=== PATIENT | female | born 1950 | race Caucasian/White ===

== ENCOUNTER 2016-05-14 10:18 | Emergency (ER) | payer OTHER ==
[~2016-05-14] VITALS: Ht 167.6 cm; Wt 72.6 kg
[~2016-05-14 10:18] MED LIST: ASCO100T4 PO; CALC-77 PO; FAMO20TA5 PO; FLUO10CA13 PO; LOSA50TA6 PO; MULT-658 PO; NAPR500T3 PO
[2016-05-14 10:31] VITALS: BP 137/70
--- NOTE | 2016-05-14 11:10 | PHYS DOC ---
Past Medical History Past Medical History: Hypertension Past Surgical History: Tubal ligation, Other Additional Past Surgical Histo: acl repair Alcohol Use: Rarely Drug Use: None Adult General Chief Complaint Chief Complaint: ABSCESS HPI HPI Patient is a 66 year old female presents emergency Department stating she's had a 2 day history of an abscess on her left buttocks area. She states that she 's been placing warm moist packs of the site. She states last night she started developing a fever and started taking Keflex at home. She states that she does have enough for 2 weeks at home. Patient's tetanus immunization is up-to-date. Patient states that she has noticed thick purulent drainage coming from the site. Review of Systems Review of Systems Constitutional: Denies fever or chills [] Eyes: Denies change in visual acuity, redness, or eye pain [] HENT: Denies nasal congestion or sore throat [] Respiratory: Denies cough or shortness of breath [] Cardiovascular: No additional information not addressed in HPI [] GI: Denies abdominal pain, nausea, vomiting, bloody stools or diarrhea [] : Denies dysuria or hematuria [] Musculoskeletal: Denies back pain or joint pain [] Integument: Denies rash or skin lesions. Abscess to left buttock area Neurologic: Denies headache, focal weakness or sensory changes [] Allergies Allergies Allergies Coded Allergies Type Severity Reaction Last Updated Verified No Known Drug Allergies 05/14/16 No Physical Exam Physical Exam Constitutional: Well developed, well nourished, no acute distress, non-toxic appearance. [] HENT: Normocephalic, atraumatic, bilateral external ears normal, oropharynx moist, no oral exudates, nose normal. [] Eyes: PERRLA, EOMI, conjunctiva normal, no discharge. [] Neck: Normal range of motion, no tenderness, supple, no stridor. [] Cardiovascular:Heart rate regular rhythm, no murmur [] Lungs & Thorax: Bilateral breath sounds clear to auscultation [] Skin: Warm, dry, no erythema, no rash. Left buttock appears to be red and tender. Warm to touch with purulent drainage coming from the site. Did express more purulent drainage from the site. Back: No tenderness Extremities: No tenderness, no cyanosis, no clubbing, ROM intact, no edema. [] Neurologic: Alert and oriented X 3, normal motor function, normal sensory function, no focal deficits noted. [] Psychologic: Affect normal, judgement normal, mood normal. [] Current Patient Data Vital Signs Vital Signs Date Time Temp Pulse Resp B/P Pulse Ox O2 Delivery O2 Flow Rate FiO2 05/14/16 10:31 97.9 74 17 99 Room Air 97.9 Lab Values Laboratory Tests Test 05/14/16 11:35 White Blood Count 7.2x10^3/uL (4.0-11.0) Red Blood Count 4.09x10^6/uL (3.50-5.40) Hemoglobin 11.9g/dL (12.0-15.5) L Hematocrit 35.7% (36.0-47.0) L Mean Corpuscular Volume 87fL (79-100) Mean Corpuscular Hemoglobin 29pg (25-35) Mean Corpuscular Hemoglobin Concent 33g/dL (31-37) Red Cell Distribution Width 14.5% (11.5-14.5) Platelet Count 239x10^3/uL (140-400) Neutrophils (%) (Auto) 61% (31-73) Lymphocytes (%) (Auto) 21% (24-48) L Monocytes (%) (Auto) 17% (0-9) H Eosinophils (%) (Auto) 1% (0-3) Basophils (%) (Auto) 1% (0-3) Neutrophils # (Auto) 4.4x10^3uL (1.8-7.7) Lymphocytes # (Auto) 1.5x10^3/uL (1.0-4.8) Monocytes # (Auto) 1.2x10^3/uL (0.0-1.1) H Eosinophils # (Auto) 0.1x10^3/uL (0.0-0.7) Basophils # (Auto) 0.1x10^3/uL (0.0-0.2) Laboratory Tests 05/14/16 11:35 EKG EKG [] Radiology/Procedures Radiology/Procedures [] Course & Med Decision Making Course & Med Decision Making Pertinent Labs and Imaging studies reviewed. (See chart for details) Patient had started on Keflex last night. We'll have her continue the Keflex. We will recommend warm moist packs to the buttocks area 3-4 times a day. This will help promote drainage. Recommended follow-up with her primary care physician in the next 2-3 days. Tylenol and ibuprofen for fever chills or generalized body aches and discomfort. Patient will be discharged home in stable condition signs and symptoms to return back to emergency department as been provided. Dragon Disclaimer Dragon Disclaimer This electronic medical record was generated, in whole or in part, using a voice recognition dictation system. Departure Departure Impression: Primary Impression: Abscess Disposition: 01 HOME, SELF-CARE Condition: STABLE Referrals: NON,STAFF (PCP) Patient Instructions: Abscess, [id number] Additional Instructions: Tylenol or ibuprofen for fever chills or generalized body aches and discomfort. Continue taking the Keflex as you've been prescribed. Warm moist packs to the area 3-4 times a day. Keep the area covered to prevent drainage and contamination. Follow-up through primary care physician in the next 2-3 days. Return back to emergency prior signs symptoms become worse. ERNIE RAINEY NP May 14, 2016 11:10
[2016-05-14 11:45] LABS: BASO # 0.1 x10^3/uL (0.0-0.2); BASO % 1 % (0-3); EOS % 1 % (0-3); HEMATOCRIT 35.7 % (36.0-47.0); HEMOGLOBIN 11.9 g/dL (12.0-15.5); LYMPH # 1.5 x10^3/uL (1.0-4.8); LYMPH % 21 % (24-48); MEAN CORPUSCULAR HEMOGLOBIN 29 pg (25-35); MEAN CORPUSCULAR HGB CONC 33 g/dL (31-37); MEAN CORPUSCULAR VOLUME 87 fL (79-100); MONO % 17 % (0-9); NEUT % 61 % (31-73); PLATELET COUNT 239 x10^3/uL (140-400); RED BLOOD COUNT 4.09 x10^6/uL (3.50-5.40); RED CELL DISTRIBUTION WIDTH 14.5 % (11.5-14.5); WHITE BLOOD COUNT 7.2 x10^3/uL (4.0-11.0)
== END 2016-05-14 12:09 | disposition home or self-care (01) ==
LOC: ER 10:18
DX: L02.31 Cutaneous abscess of buttock (principal); I10 Essential (primary) hypertension
CPT/HCPCS: 36415; 85027; 99283

== ENCOUNTER 2016-05-17 11:42 | Day surgery (SDC) | payer OTHER ==
[~2016-05-17 11:42] MED LIST changes: -CEFAZOLIN 2GM PREMIX 50 ML IV ONE; -DOCU100C PO; -OXYC-323 PO; -SILV20CR4 TP
[2016-05-17] MEDS ORDERED: LIDOCAINE 1% 1 ML SYRINGE. ID PRN ×2 (11:45)
[2016-05-17] MEDS ORDERED: HYDROMORPHONE 2 MG/ML VIAL. IV PRN ×2 (11:45)
[2016-05-17] MEDS ORDERED: PROCHLORPERAZINE 10 MG/2 ML VIAL. IV PRN ×2 (11:45)
[2016-05-17] MEDS ORDERED: MORPHINE SULFATE 2 MG/ML DISP.SYRIN. IV PRN ×2 (11:45)
[2016-05-17] MEDS ORDERED: FENTANYL PF 100 MCG/2 ML VIAL. IV PRN ×4 (11:45)
[2016-05-17] MEDS ORDERED: IV RINGERS,LACTATED 1000ML 1,000 ML IV SCH ×2 (11:45)
[2016-05-17] MEDS ORDERED: ONDANSETRON PF 4 MG/2 ML VIAL. IV PRN ×2 (11:45)
--- NOTE | 2016-05-17 11:53 | PDOC1 ---
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 She was seen in the ED where they expressed some material from the area and sent her home. She has continued to have pain and some drainage and is brought for surgical I&D Past Medical History Cardiovascular: HTN Pulmonary: No pertinent hx GI: No pertinent hx Dermatology: Other (previous abscess) Past Surgical History Past Surgical History: Tubal Ligation, Other (ACL repair) Family History Family History: No Significant Social History Smoke: No ALCOHOL: rare Drugs: None Current Medications Current Medications Current Medications Ondansetron HCl (Zofran) 4 mg PRN Q6HRS PRN IV Nausea; Start 05/17/16 at 11:45 ; Stop 05/18/16 at 11:44; Status UNV Fentanyl Citrate (Fentanyl 2ml Vial) 25 mcg PRN Q5MIN PRN IV MILD PAIN; Start 05/17/16 at 11:45; Stop 05/18/16 at 11:44; Status UNV Fentanyl Citrate (Fentanyl 2ml Vial) 50 mcg PRN Q5MIN PRN IV MODERATE PAIN; Start 05/17/16 at 11:45; Stop 05/18/16 at 11:44; Status UNV Morphine Sulfate 1 mg 1 mg PRN Q10MIN PRN IV SEVERE PAIN; Start 05/17/16 at 11: 45; Stop 05/18/16 at 11:44; Status UNV Lactated Ringer's (Iv Lactated Ringers) 1,000 ml @ 0 mls/hr Q0M IV ; Start at 11:45; Stop 05/17/16 at 23:44; Status UNV Lidocaine HCl 2 ml 1X PRN PRN ID IV START; Start 05/17/16 at 11:45; Stop at 11:44; Status UNV Hydromorphone HCl (Dilaudid) 0.5 mg PRN Q10MIN PRN IV SEV PAIN,Second choice; Start 05/17/16 at 11:45; Stop 05/18/16 at 11:44; Status UNV Prochlorperazine Edisylate (Compazine) 5 mg PACU PRN PRN IV NAUSEA; Start 05/17 at 11:45; Stop 05/18/16 at 11:44; Status UNV Ondansetron HCl (Zofran) 4 mg PRN Q6HRS PRN IV Nausea; Start 05/17/16 at 11:45 ; Stop 05/18/16 at 11:44; Status UNV Fentanyl Citrate (Fentanyl 2ml Vial) 25 mcg PRN Q5MIN PRN IV MILD PAIN; Start 05/17/16 at 11:45; Stop 05/18/16 at 11:44; Status UNV Fentanyl Citrate (Fentanyl 2ml Vial) 50 mcg PRN Q5MIN PRN IV MODERATE PAIN; Start 05/17/16 at 11:45; Stop 05/18/16 at 11:44; Status UNV Morphine Sulfate 1 mg 1 mg PRN Q10MIN PRN IV SEVERE PAIN; Start 05/17/16 at 11: 45; Stop 05/18/16 at 11:44; Status UNV Lactated Ringer's (Iv Lactated Ringers) 1,000 ml @ 0 mls/hr Q0M IV ; Start at 11:45; Stop 05/17/16 at 23:44; Status UNV Lidocaine HCl 2 ml 1X PRN PRN ID IV START; Start 05/17/16 at 11:45; Stop at 11:44; Status UNV Hydromorphone HCl (Dilaudid) 0.5 mg PRN Q10MIN PRN IV SEV PAIN,Second choice; Start 05/17/16 at 11:45; Stop 05/18/16 at 11:44; Status UNV Prochlorperazine Edisylate (Compazine) 5 mg PACU PRN PRN IV NAUSEA; Start 05/17 at 11:45; Stop 05/18/16 at 11:44; Status UNV Active Scripts Active Reported Vitamin C (Ascorbic Acid) 100 Mg Tablet 100 Mg PO Calcium + D3 Er Tablet (Calcium Carb & Cit/Vitamin D3) 1 Each Tablet.er 1 Each PO DAILY Centrum Silver Tablet (Multivits-Min/Fa/Lycopene/Lut) 1 Each Tablet 1 Each PO DAILY Famotidine 20 Mg Tablet 10 Mg PO HS PRN Naproxen 500 Mg Tablet 1 Tab PO BID PRN Losartan Potassium 50 Mg Tablet 50 Mg PO DAILY Prozac (Fluoxetine Hcl) 10 Mg Capsule 1 Cap PO DAILY Allergies Allergies: Coded Allergies: No Known Drug Allergies (Unverified , 05/14/16) ROS General: YES: Chills, Other (low grade fevers) Physical Exam General: Alert, Oriented X3, Cooperative, No acute distress HEENT: Atraumatic Lungs: Normal air movement Heart: RRR Abdomen: Soft Rectal Exam: other (on the left buttocks, near the perirectal area is an area of redness, warmth and TTP) Skin: No rashes Neuro: Normal gait, Normal speech Images Images soft tissue US suggests fluid collection in the subcutaneous tissue VTE Prophylaxis Ordered VTE Prophylaxis Devices: Yes VTE Pharmacological Prophylaxi: No Assessment/Plan Assessment/Plan perirectal abscess/I and D Explained procedure to Breanna including the fact she would have an open wound requiring daily dressing changes. She will proceed JADEN MONTERO MD May 17, 2016 11:53
[2016-05-17] MEDS ORDERED: MIDAZOLAM HCL 2 MG/2 ML VIAL. ONE (11:55)
[2016-05-17] MEDS ORDERED: FENTANYL PF 100 MCG/2 ML VIAL. ONE (11:56)
[2016-05-17] MEDS ORDERED: PROPOFOL 20 ML IV ONE (11:57)
[2016-05-17] MEDS ORDERED: LIDOCAINE 2% 100 MG/5 ML DISP.SYRIN. ONE (11:58)
[2016-05-17] MEDS ORDERED: CEFAZOLIN 2GM PREMIX 50 ML IV ONE (11:59)
[2016-05-17] MEDS ORDERED: ONDANSETRON PF 4 MG/2 ML VIAL. ONE (12:27)
[2016-05-17] MEDS ORDERED: SEVOFLURANE 16 TO 30 MINUTES. IH ONE (12:27)
[2016-05-17] MEDS ORDERED: DEXAMETHASONE SOD PHOS 20 MG/5 ML VIAL. ONE (12:27)
[2016-05-17] MEDS ORDERED: NEOMY/BACITR/POLYMYXIN OINT PACKET. TP ONE ×2 (12:31→12:33)
--- NOTE | 2016-05-17 12:51 | DISCH ---
DISCHARGE INSTRUCTIONS Condition on Discharge Condition on Discharge: Stable Activity After Discharge Activity Instructions for Disc: Activity as tolerated, Avoid exertion Lifting Instructions after Dis: No heavy lifting Driving Instructions after Dis: Do not drive today Diet after Discharge Diet after Discharge: Regular Wound Incision Care Wound/Incision Care: Ice to area for comfort Other wound/incision instructi: august showmonday Follow-Up Follow Up With: Reji tomorrow for dressing change JADEN MONTERO MD May 17, 2016 12:51
--- NOTE | 2016-05-17 12:57 | PDOC ---
BRIEF OPERATIVE NOTE Date: May 17, 2016 Pre-Op Diagnosis perirectal abscess Post-Op Diagnosis same Procedure Performed sharp debridement of skin and subcutaneous tissue Surgeon Reji Anesthesia Type: General Blood Loss 10cc IV Fluid 400cc Specimens Obtained cultures Findings abscess cavity Complications none Additional Remarks # [id number] JADEN MONTERO MD May 17, 2016 12:57
[2016-05-17] MEDS ORDERED: OXYC-323 PO (13:10)
[2016-05-17] MEDS ORDERED: SILV20CR4 TP (13:10)
[2016-05-17] MEDS ORDERED: DOCU100C PO (13:11)
[2016-05-17 14:00] VITALS: BP 128/68
--- NOTE | 2016-05-17 16:27 | OP ---
DATE OF SURGERY: 05/17/2016 PREOPERATIVE DIAGNOSIS: Perirectal abscess. POSTOPERATIVE DIAGNOSIS: Perirectal abscess. PROCEDURE: Sharp debridement of skin and subcutaneous tissue, perirectal abscess, left buttocks. SURGEON: Jaden Montero MD ANESTHESIA: General. ESTIMATED BLOOD LOSS: 10 mL. IV FLUID: 400 mL. 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 Ultrasound shows a collection of fluid. She is brought for debridement. DESCRIPTION OF PROCEDURE: The patient brought to the operating suite, given general LMA, placed in the dorsal lithotomy position and the perineal perirectal area was prepped and draped in usual sterile fashion. The draining site was with hemostat and revealed a tract progressing anteriorly and slightly posteriorly. The area was unroughed by sharply excising the skin and subcutaneous fat down to the cavity. The cavity was cultured and then copiously irrigated and checked for hemostasis. This was obtained with cautery. When hemostasis was present a correct sponge count had been obtained, the wound was dressed with 1-inch plain Nu Gauze soaked in saline along with some antibiotic ointment. Sterile dressing applied. The patient taken out of the lithotomy position, awakened from her anesthetic, and taken to the recovery room in satisfactory condition. JADEN MONTERO MD DR: LA/prema JOB#: [id number] / [id number]
== END 2016-05-17 14:16 | disposition home or self-care (01) ==
LOC: SURG 11:42
PROVIDERS: ATTEND Surgery
DX: K61.1 Rectal abscess (principal); M79.89 Other specified soft tissue disorders; Z98.51 Tubal ligation status
CPT/HCPCS: 11042; 87205; J0690; J1100; J2250; J2405; J2704; J3010; 87071; 87075

== ENCOUNTER → 2016-05-17 | Outpatient (CLI) | payer OTHER ==
[2016-05-14 10:31] VITALS: BP 137/70
[~2016-05-17] MED LIST changes: +CEFAZOLIN 2GM PREMIX 50 ML IV ONE; +DOCU100C PO; +OXYC-323 PO; +SILV20CR4 TP
--- NOTE | 2016-05-17 16:28 | RAD ---
Left buttock ultrasound, 05/17/2016: History: Lump, redness The area of clinical concern in the left buttock region was carefully scanned. An elongated irregularly marginated hypoechoic process is seen in the subcutaneous soft tissues at this level. This probably represents complex fluid. It measures approximately 4.5 x 1.1 x 0.9 cm. Diagnostic considerations include abscess, hematoma or infected hematoma.
== END | disposition home or self-care (01) ==
LOC: US 10:14
PROVIDERS: ATTEND Surgery
DX: L02.31 Cutaneous abscess of buttock (principal)
CPT/HCPCS: 76881

== ENCOUNTER 2016-09-13 11:03 | Emergency (ER) | payer OTHER ==
[~2016-09-13] VITALS: Ht 167.6 cm; Wt 76.2 kg
[~2016-09-13 11:03] MED LIST changes: +DOCU100C PO; +OXYC-323 PO; +SILV20CR4 TP
[2016-09-13 11:19] VITALS: BP 209/94
--- NOTE | 2016-09-13 13:26 | PHYS DOC ---
Past Medical History Past Medical History: Arthritis, Hypertension Past Surgical History: Tubal ligation, Other Additional Past Surgical Histo: acl repair Alcohol Use: Rarely Drug Use: None Adult General Chief Complaint Chief Complaint: headache HPI HPI Patient is a 66 year old female who presents with headache. Headache occurred yesterday and pt noted her BP to be elevated. She took an extra dose of her losartan and about an hour later it resolved. The headache occurred again this morning and she again had an elevated blood pressure. She attempted Excedrin but no relief. Upon arrival to the ER, she states her ARMENTA resolved and now her BP has improved. No recent BP med changes. Pt is feeling improved at this time and would prefer to follow-up with her PCP for med changes. No focal weakness, no CP, no SOB. Review of Systems Review of Systems Constitutional: Denies fever or chills [] Eyes: Denies change in visual acuity, redness, or eye pain [] HENT: Denies nasal congestion or sore throat [] Respiratory: Denies cough or shortness of breath [] Cardiovascular: denies chest pain GI: Denies abdominal pain, nausea, vomiting, bloody stools or diarrhea [] : Denies dysuria or hematuria [] Musculoskeletal: Denies back pain or joint pain [] Integument: Denies rash or skin lesions [] Neurologic: Denies current headache, focal weakness or sensory changes [] Allergies Allergies Allergies Coded Allergies Type Severity Reaction Last Updated Verified I S O L A T I O N *CONTACT* Allergy Unknown 05/24/16 Yes diltiazem Adverse Reaction Severe 05/17/16 Yes lisinopril Adverse Reaction Unknown cough 09/13/16 Yes Physical Exam Physical Exam Constitutional: Well developed, well nourished, no acute distress, non-toxic appearance. [] HENT: Normocephalic, atraumatic, bilateral external ears normal, oropharynx moist, no oral exudates, nose normal. [] Eyes: PERRLA, EOMI, conjunctiva normal, no discharge. [] Neck: Normal range of motion, no tenderness, supple, no stridor. [] Cardiovascular:Heart rate regular with regular rhythm, no murmur [] Lungs & Thorax: Bilateral breath sounds clear to auscultation, no wheeze or crackles Abdomen: Bowel sounds normal, soft, no tenderness, no masses, no pulsatile masses. [] Skin: Warm, dry, no erythema, no rash. [] Back: No tenderness, no CVA tenderness. [] Extremities: No tenderness, no cyanosis, no clubbing, ROM intact, no edema. 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 [] Current Patient Data Vital Signs Vital Signs Date Time Temp Pulse Resp B/P (MAP) Pulse Ox O2 Delivery O2 Flow Rate FiO2 09/13/16 11:19 98.3 72 20 209/94 (132) 97 Room Air 98.3 EKG EKG [] Radiology/Procedures Radiology/Procedures [] Course & Med Decision Making Course & Med Decision Making Pertinent Labs and Imaging studies reviewed. (See chart for details) ARMENTA resolved without intervention. BP improved to 140s/70s. Pt wanting to f/u with PCP. Return precautions given. Dragon Disclaimer Dragon Disclaimer This electronic medical record was generated, in whole or in part, using a voice recognition dictation system. Departure Departure Impression: Primary Impression: Headache Additional Impression: Hypertension Disposition: 01 HOME, SELF-CARE Condition: STABLE Patient Instructions: Hypertension, [id number] Problem Qualifiers MICHAELA LIVE MD September 13, 2016 13:26
== END 2016-09-13 12:44 | disposition home or self-care (01) ==
LOC: ER 11:10
DX: R51 Headache (principal); I10 Essential (primary) hypertension; M19.90 Unspecified osteoarthritis, unspecified site; Z88.8 Allergy status to other drugs, medicaments and biological substances; Z91.041 Radiographic dye allergy status
CPT/HCPCS: 99281

== ENCOUNTER → 2018-11-13 | Outpatient (CLI) | payer OTHER ==
[~2018-11-13] MED LIST changes: +DOCU-150 PO; -DOCU100C PO; +LOSA-73 PO; -LOSA50TA6 PO; +NAPR-514 PO; -NAPR500T3 PO; -OXYC-323 PO; +OXYC1TAB15 PO; +SILV20CR14 TP; -SILV20CR4 TP
[2018-11-13 12:39] LABS: BILIRUBIN,URINE NEGATIVE (NEG); CLARITY,URINE CLEAR; COLOR,URINE YELLOW; NITRITE,URINE NEGATIVE (NEG); PH,URINE 5.5; PROTEIN,URINE NEGATIVE (NEG-TRACE); UROBILINOGEN,URINE 0.2 mg/dL (0.2 mg/dL)
[2018-11-13 12:41] LABS: BASO # 0.1 x10^3/uL (0.0-0.2); BASO % 2 % (0-3); EOS # 0.1 x10^3/uL (0.0-0.7); EOS % 2 % (0-3); HEMATOCRIT 38.6 % (36.0-47.0); HEMOGLOBIN 13.2 g/dL (12.0-15.5); LYMPH # 1.2 x10^3/uL (1.0-4.8); LYMPH % 25 % (24-48); MEAN CORPUSCULAR HEMOGLOBIN 29 pg (25-35); MEAN CORPUSCULAR HGB CONC 34 g/dL (31-37); MEAN CORPUSCULAR VOLUME 85 fL (79-100); MONO # 0.5 x10^3/uL (0.0-1.1); MONO % 10 % (0-9); NEUT % 62 % (31-73); PLATELET COUNT 304 x10^3/uL (140-400); RED BLOOD COUNT 4.56 x10^6/uL (3.50-5.40); RED CELL DISTRIBUTION WIDTH 14.2 % (11.5-14.5); WHITE BLOOD COUNT 4.8 x10^3/uL (4.0-11.0)
[2018-11-13 12:52] LABS: SQUAMOUS EPITHELIAL CELL,UR OCC /LPF
[2018-11-13 12:53] LABS: BACTERIA,URINE FEW /HPF (0-FEW); RBC,URINE 0 /HPF (0-2)
[2018-11-13 13:07] LABS: C-REACTIVE PROTEIN 9.5 mg/L (0-3.3); CALCIUM 10.3 mg/dL (8.5-10.1); CREATININE 0.9 mg/dL (0.6-1.0); DIRECT BILIRUBIN 0.2 mg/dL (0.0-0.2); GFR 62.3; POTASSIUM 4.4 mmol/L (3.5-5.1); TOTAL BILIRUBIN 0.5 mg/dL (0.2-1.0); TOTAL PROTEIN 8.3 g/dL (6.4-8.2)
[2018-11-13 13:15] LABS: CHOLESTEROL/HDL RATIO 3.9
[2018-11-13 13:17] LABS: FREE T4 0.95 ng/dL (0.76-1.46)
== END | disposition home or self-care (01) ==
LOC: LAB 12:11
PROVIDERS: ATTEND Dentist
DX: I10 Essential (primary) hypertension (principal)
CPT/HCPCS: 36415; 80048; 80061; 80076; 81001; 84436; 84439; 84481; 85025; 86140

== ENCOUNTER → 2020-09-22 | Outpatient (CLI) | payer OTHER ==
--- NOTE | 2020-09-22 16:01 | RAD ---
EXAM: Left knee, 4 views. HISTORY: Pain status post ACL repair. COMPARISON: None. FINDINGS: 4 views of the left knee are obtained. There is instrumentation within the proximal tibia d ue to prior cruciate ligament surgery. There is severe medial compartment joint space narrowing with subchondral sclerosis, subchondral cyst formation, marginal spurring and bony remodeling. There is al so moderate lateral and patellofemoral compartment spurring. There is genu varus. There is a small yulissa int effusion. IMPRESSION: 1. Severe medial and moderate lateral and patellofemoral compartment osteoarthritis of the left knee with small joint effusion. 2. Left genu varus. 3. Instrumentation within the proximal tibia due to prior cruciate ligament surgery. Electronically signed by: Karen Burgess MD (09/22/2020 3:59 PM) [id number]
== END ==
LOC: RAD 15:05
PROVIDERS: ATTEND Internal Medicine
DX: M17.12 Unilateral primary osteoarthritis, left knee (principal); M25.462 Effusion, left knee; M21.162 Varus deformity, not elsewhere classified, left knee
CPT/HCPCS: 73564

== ENCOUNTER → 2021-01-26 | Outpatient (CLI) | payer OTHER ==
[~2021-01-26] MED LIST changes: +CLOB15CR TP; +DEXT20TA24 PO; -DOCU-150 PO; +DOCU-158 PO; +FLUO20CA20 PO; +GENT30OI2 TP; +LACT1CAP8 PO; +MELO15TA23 PO; +WARF-31 PO
[2021-01-26 14:26] LABS: BASO # 0.1 x10^3/uL (0.0-0.2); BASO % 1 % (0-3); EOS # 0.2 x10^3/uL (0.0-0.7); EOS % 3 % (0-3); HEMATOCRIT 38.6 % (36.0-47.0); LYMPH # 1.2 x10^3/uL (1.0-4.8); LYMPH % 22 % (24-48); MEAN CORPUSCULAR HEMOGLOBIN 29 pg (25-35); MEAN CORPUSCULAR HGB CONC 34 g/dL (31-37); MEAN CORPUSCULAR VOLUME 86 fL (79-100); MONO # 0.7 x10^3/uL (0.0-1.1); MONO % 13 % (0-9); NEUT # 3.4 x10^3/uL (1.8-7.7); NEUT % 60 % (31-73); PLATELET COUNT 312 x10^3/uL (140-400); RED CELL DISTRIBUTION WIDTH 13.9 % (11.5-14.5); WHITE BLOOD COUNT 5.5 x10^3/uL (4.0-11.0)
[2021-01-26 14:36] LABS: PROTHROMBIN TIME PATIENT 13.5 SEC (11.7-14.0)
[2021-01-26 14:45] LABS: ALBUMIN 3.7 g/dL (3.4-5.0); CREATININE 0.9 mg/dL (0.6-1.0); GFR 61.9; POTASSIUM 3.8 mmol/L (3.5-5.1)
--- NOTE | 2021-01-26 14:52 | EKG ---
[facility] [address] [place] [address] Test Date: 2021-01-26 Test Time: 14:50:15 Pat Name: BA STRICKLAND Department: Room: Gender: F [employer]ary [employer]ing: JENNIFER : 1950 Requested By: GORDON ALVAREZ Order Number: [id number] Reading MD: Axel Martines Measurements Intervals Morgan Rate: 92 P: 54 SC: 164 QRS: -5 QRSD: 82 T: 33 QT: 346 QTc: 433 Interpretive Statements SINUS RHYTHM LEFTWARD AXIS QRS(T) CONTOUR ABNORMALITY CONSISTENT WITH INFERIOR INFARCT PROBABLY OLD ABNORMAL ECG RI6.01 No previous ECG available for comparison Electronically Signed On 01-29-2021 15:27:16 CDT by Axel Martines
[2021-01-27 00:11] LABS: HEMOGLOBIN A1C 5.9 % (4.8-5.6)
== END ==
LOC: SURGPAT 13:31
PROVIDERS: ATTEND Orthopaedic Surgery
DX: Z01.812 Encounter for preprocedural laboratory examination (principal)
CPT/HCPCS: 36415; 80048; 82040; 82306; 83036; 85025; 85610; 85651; 85730; 87641; 93005

== ENCOUNTER 2021-02-09 09:25 | Observation (INO) | payer OTHER, MEDICARE ==
[2021-01-26 14:20] VITALS: BP 178/82
[~2021-02-09] VITALS: Ht 167.6 cm; Wt 80.7 kg
[2021-02-09] VITALS (11 sets, daily range): BP systolic 120–157; BP diastolic 65–86
[~2021-02-09 09:25] MED LIST changes: +ACETAMINOPHEN 500 MG TABLET PO PRN; +GABAPENTIN 300 MG CAPSULE. PO PRN; +HYDROmorphone 2 MG/ML VIAL IVP PRN; +IV RINGERS,LACTATED 1000ML 1,000 ML IV SCH; +MELOXICAM 7.5 MG TABLET PO PRN; +MORPHINE SULFATE 2 MG/ML INJ. IVP PRN; +MORPHINE SULFATE 5 MG, KETOROLAC 30MG VIAL 30 MG, ROPIVacaine 0.5% PF 60 ML, EPINEPHrin... INT ART ONE; +PROCHLORPERAZINE 10 MG/2 ML VIAL. IVP PRN; +TRANEXAMIC ACID 1,000 MG in IV NS 50ML -- 1ST BAG INJ ONE; +TRANEXAMIC ACID 1,000 MG in IV NS 50ML -- 2ND BAG INJ ONE; +fentaNYL PF VIAL 100 MCG/2 ML VIAL IVP PRN
[2021-02-09] MEDS ORDERED: DEXAMETHASONE SOD PHOS 4 MG/ML VIAL ONE (09:31)
[2021-02-09] MEDS ORDERED: KETOROLAC 30 MG/ML VIAL. ONE (09:31)
[2021-02-09] MEDS ORDERED: LIDOCAINE 2% PF 5 ML VIAL. ONE (09:31)
[2021-02-09] MEDS ORDERED: ONDANSETRON PF 4 MG/2 ML VIAL. ONE (09:31)
[2021-02-09] MEDS ORDERED: PROPOFOL 10 MG/ML (20ML) VIAL. IV ONE (09:31)
[2021-02-09] MEDS ORDERED: TRANEXAMIC ACID in NS IVPB 100 ML ONE (09:36)
[2021-02-09] MEDS ORDERED: VANCOMYCIN 1 GM VIAL. ONE (09:36)
[2021-02-09 10:36] LABS: PROTHROMBIN TIME PATIENT 13.7 SEC (11.7-14.0)
[2021-02-09] MEDS ORDERED: fentaNYL PF VIAL 100 MCG/2 ML VIAL ONE ×4 (10:53→13:57)
[2021-02-09] MEDS ORDERED: ePHEDrine PF IN SALINE 50 MG/10 ML SYRINGE. IV ONE (11:05)
--- NOTE | 2021-02-09 11:23 | HP ---
ADMIT DATE: 02/09/2021 PREOPERATIVE HISTORY AND PHYSICAL CHIEF COMPLAINT: Left knee pain and degenerative joint disease. 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 She has a history of remote ACL reconstruction many years ago and has been having progressive pain and limitations of her activities of daily living, not adequately controlled with previous injections, bracing, activity modification, among other nonoperative measures. She is also taking glucosamine and anti-inflammatories in the past and is just having more deformity, instability, severely affecting her activities of daily living and work duties. 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 PAST SURGICAL HISTORY: ACL surgery on her left knee, I and D of a left gluteal abscess. FAMILY HISTORY: Denies any family history. SOCIAL HISTORY: Denies smoking or drug use. Occasional social alcohol use. MEDICATIONS: List is reviewed. ALLERGIES: INCLUDE CARDIZEM. 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 She said that this happens occasionally where the area where she has rash and scarring tends to break open and usually resolves uneventfully. Otherwise, no chest pain, shortness of breath, febrile illness, focal weakness, numbness, tingling or other constitutional symptoms. PHYSICAL EXAMINATION: VITAL SIGNS: Per admission sheet. HEENT: Atraumatic, normocephalic. HEART: Regular rate and rhythm. LUNGS: Clear to auscultation bilaterally. ABDOMEN: Benign. EXTREMITIES: Examination of the left knee reveals severe medial joint line tenderness moderate varus and really more pain than pseudolaxity with varus stress. No gross instability anterior and posterior drawer. Moderate patellofemoral crepitus is present without instability. Normal examination of the contralateral knee, bilateral hips and ankles. DIAGNOSTIC DATA: X-rays show tricompartmental degenerative change [id number] on the medial compartment with varus deformity, some medial tibial erosion along with previous ACL fixation hardware present in the tibia and femur. IMPRESSION: Posttraumatic osteoarthritis, left knee. TREATMENT PLAN: We had previously discussed risks, benefits, postoperative course to include the possibility of infection, continued pain, premature wear or loosening, instability, nerve or blood vessel damage, medical or other anesthetic complications among others. All her questions were answered. She wishes to proceed with surgical evaluation and treatment, which will include [facility] observation to follow. ANA DR: Sarah TID: [id number]
[2021-02-09] MEDS ORDERED: METOPROLOL IV PUSH 5 MG/5 ML VIAL. IVP ONE (11:54)
[2021-02-09] MEDS: fentaNYL PF VIAL 100 MCG/2 ML VIAL IVP PRN ×2 (13:08→13:59)
--- NOTE | 2021-02-09 13:09 | PDOC4 ---
Operative Note Operative Note Date of surgery: 02/09/2021 Preoperative diagnosis: Degenerative arthritis left knee Postoperative diagnosis: Same Operative procedure: Left total knee arthroplasty Surgeon: Ernestine Assist: Timothy brown Anesthesia: General Estimated blood loss: 50 cc Complications: None Specimens: Cartilage surfaces to pathology Operative indications: Please see my dictated preoperative history and physical for detailed operative indications and note that we had reviewed preoperatively risks benefits postoperative course of the surgery including the possibility of infection continued pain nerve or blood vessel damage premature wear or loosening instability medical or other anesthetic complications among others and she agrees to proceed with surgical evaluation and treatment having given informed consent Operative text: Patient was identified procedure verified patient placed in the supine position on the operating table. After adequate amounts of general anesthesia were administered the left lower extremity was prepped and draped in standard sterile fashion with a thigh tourniquet and after timeout was performed patient procedure identified and verified the left lower extremity was exsangui nated by Esmarch bandage tourniquet inflated to 300 mmHg and a midline incision was made followed by a medial parapatellar approach fat pad was excised and patella everted and the distal femur drilled to accommodate the intramedullary cutting guide which was set at 5 degrees with standard distal cut. A tibial cut was made using the extra medullary cutting guide aligned with the second toe and alignment verified. Balancing was confirmed with the drop delmis and noted in both flexion and extension, tibia was prepared with a size D persona trial component. Femur was sized at a size 8 and AP lateral chamfer cuts were made and ligament carried out. Excellent stability with a 12 mm trial medial congruent articular surface spacer. Femoral lug holes were drilled and patella was not resurfaced. She had excellent tracking. Trial components were removed thorough irrigation carried out with normal saline solution and the following persona components were cemented in place with polymethylmethacrylate cement: A size D persona natural tibial component and size 8 narrow right persona cruciate retaining femur. Excess cement was removed with a curette and a vitamin E medial congruent 12 mm height articular spacer was locked into place and the knee held into extension until cement was dry. Irrigation again carried out with dilute Betadine lavage and normal saline solution and 1 g vancomycin was placed in the knee joint. Retinaculum closed with #1 PDS suture in a running fashion subcutaneous closure with buried Vicryl sutures subcuticular closure with 3-0 strata fix Monocryl. A daniel dressing was placed. Toes were noted to be warm pink following deflation of the tourniquet patient was returned to recovery room in stable condition having tolerated procedure well. Timothy brown was present for the procedure and assisted in patient positioning prepping draping retraction closure dressings. GORDON ALVAREZ MD Feb 09, 2021 13:09
[2021-02-09] MEDS ORDERED: CALCIUM CARBONATE 500 MG TAB.CHEW PO PRN (14:00)
[2021-02-09] MEDS ORDERED: GENTAMICIN 0.1% TOPICAL OINTMENT 15GM TUBE. TP PRN (14:00)
[2021-02-09] MEDS ORDERED: PROCHLORPERAZINE 5 MG TABLET. PO PRN (14:00)
[2021-02-09] MEDS ORDERED: DEXTROSE 50% 25 GM / 50ML DISP.SYRIN. IV PRN (14:00)
[2021-02-09] MEDS ORDERED: DOCUSATE SODIUM 100 MG CAPSULE. PO PRN (14:00)
[2021-02-09] MEDS ORDERED: 0.9 % SODIUM CHLORIDE 10 ML DISP.SYRIN. IV PRN (14:00)
[2021-02-09] MEDS ORDERED: ZOLPIDEM 5 MG TABLET. PO PRN (14:00)
[2021-02-09] MEDS ORDERED: FAMOTIDINE 20 MG TABLET. PO PRN (14:00)
[2021-02-09] MEDS ORDERED: CLOBETASOL EMOLLIENT 0.05% TOPICAL CREAM 15GM TUBE. TP PRN (14:30)
--- NOTE | 2021-02-09 14:41 | RAD ---
Left knee 2 views. HISTORY: Postop arthroplasty 2 views were taken of the left knee. There is a total joint prosthesis in place. There is no acute fr acture. There is air in the soft tissues from surgery. IMPRESSION: 1. Operative changes from left knee arthroplasty. Electronically signed by: Manny Marina MD (02/09/2021 2:39 PM) [facility]
[2021-02-09] MEDS ORDERED: fentaNYL PF VIAL 100 MCG/2 ML VIAL IVP PRN (15:00)
[2021-02-09] MEDS ORDERED: MORPHINE SULFATE 2 MG/ML INJ. IVP PRN (15:00)
[2021-02-09] MEDS ORDERED: diphenhydrAMINE 50 MG/ML VIAL IVP PRN (15:00)
[2021-02-09] MEDS ORDERED: IV NORMAL SALINE 1000ML BAG 1,000 ML IV SCH (15:00)
--- NOTE | 2021-02-09 15:00 | NUR ---
received from recovery. she is alert and oriented. she is rating her pain a "2". she has good motion, sensation and pulses bilateral lower extremities. she was incontinent of urine. linens changed.
[2021-02-09] MEDS ORDERED: WARFARIN 7.5 MG TABLET. PO ONE (16:00)
[2021-02-09] MEDS: FERROUS SULFATE 325 MG TABLET. PO SCH (17:58)
[2021-02-09] MEDS: ONDANSETRON PF 4 MG/2 ML VIAL. IVP SCH (17:58)
[2021-02-09] MEDS: ONDANSETRON ODT 4 MG TAB.RAPDIS. PO SCH (18:00)
[2021-02-09] MEDS: oxyCODONE IR 5 MG TABLET PO PRN (18:02)
[2021-02-10] MEDS: oxyCODONE IR 5 MG TABLET PO PRN ×4 (01:52→18:14)
[2021-02-10 03:00] VITALS: BP 135/60
--- NOTE | 2021-02-10 05:10 | NUR ---
Slept well. No change in condition.
[2021-02-10] MEDS: ONDANSETRON PF 4 MG/2 ML VIAL. IVP SCH ×3 (06:00→12:00)
[2021-02-10] MEDS: ONDANSETRON ODT 4 MG TAB.RAPDIS. PO SCH ×3 (06:00→12:00)
[2021-02-10] MEDS ORDERED: MAGNESIUM HYDROXIDE 2,400 MG/30 ML ORAL.SUSP. PO PRN (06:00)
[2021-02-10 06:31] VITALS: BP 118/65
[2021-02-10] MEDS: SENNOSIDES/DOCUSATE 8.6/50MG TABLET. PO SCH (08:59)
[2021-02-10] MEDS: MULTIVITAMIN with MINERAL TABLET. PO SCH (09:00)
[2021-02-10] MEDS: FLUoxetine HCL 20 MG CAPSULE PO SCH (09:00)
[2021-02-10] MEDS: FERROUS SULFATE 325 MG TABLET. PO SCH ×2 (09:00→15:47)
[2021-02-10] MEDS: ACETAMINOPHEN 500 MG TABLET PO SCH ×3 (09:00→20:38)
[2021-02-10] MEDS: LOSARTAN POTASSIUM 50 MG TABLET. PO SCH (09:01)
[2021-02-10 09:04] LABS: PROTHROMBIN TIME PATIENT 15.2 SEC (11.7-14.0)
[2021-02-10] MEDS ORDERED: ONDANSETRON ODT 4 MG TAB.RAPDIS. PO PRN (12:00)
[2021-02-10] MEDS ORDERED: ONDANSETRON PF 4 MG/2 ML VIAL. IVP PRN (12:00)
--- NOTE | 2021-02-10 13:10 | NUR ---
Wound Care Wound Type/Assessment: Pt seen for L upper posterior arm chronic ulceration, known to wound care from intermittent episodes of skin breakdown over area. Pt saw García Hunter. with differential diagnosis from biopsy including necrobiosis lipoidica. Pt normally maintains skin integrity with Eucerin cream and intermittent use of Clobetasol for itching. Open ulceration looks dry, pale pink and yellow slough, area covered with Xeroform gauze and Aquacel foam, pt will return to her normal regimen of Gentamicin to open area, foam and Medigrip when she goes home. Treatment Recommendations/Plan: Soften with moisturizer, Xeroform gauze over ulcer, Aquacel foam, change every 3-4 days. Medigrip to LLU for protection. Education provided: to pt re: POC Offloading surface/device: n/a Recommended Referrals/Tests: n/a Discharge Recommendations for dressings: Gentamicin to ulcer, moisturizer to scarring
--- NOTE | 2021-02-10 14:02 | NUR ---
Pharmacy Warfarin Dosing Note S: Pharmacy consulted to assist with anticoagulation therapy started 02/08/21 O: BA STRICKLAND is a 71 year old F with TKA LABS: Last INR: 1.2 Last HGB: - Last HCT: - Last PLT: - Last dose of 7.5 mg given on 02/09/21 at 1759 A:INR of 1.2 is below desired range. Target range for this patient is: 1.6 - 2.5 P: Warfarin dose: 5 mg Today at 1600 [facility]: - Next INR due tomorrow Pharmacy anticoagulation service will continue to follow. Janell Zabala RPH, 02/10/21 [id number]
[2021-02-10] MEDS ORDERED: WARFARIN 5 MG TABLET. PO ONE (16:00)
[2021-02-10] MEDS ORDERED: BISACODYL 10 MG SUPP.RECT. PR PRN (16:00)
[2021-02-10 18:37] VITALS: BP_SYST 126; BP_SYST 130; BP_DIAS 58; BP_DIAS 70
--- NOTE | 2021-02-10 20:35 | PDOC ---
PROGRESS NOTES Date of Service DATE: 02/10/21 TIME: 20:32 Subjective Subjective Problems overnight: Overall feels good, pain well controlled Objective Vital Signs Vital Signs Date Time Temp Pulse Resp B/P (MAP) Pulse Ox O2 Delivery O2 Flow Rate FiO2 02/10/21 18:44 96 Room Air 02/10/21 18:37 99.0 87 20 130/58 (82) 99.0 02/09/21 22:54 Physical Exam Roger dressing clean dry intact good early range of motion patellofemoral tracking distal neurovascular status intact Labs Laboratory Tests Test 02/09/21 09:55 02/10/21 08:25 Prothrombin Time 13.7 SEC (11.7-14.0) 15.2 SEC (11.7-14.0) Prothromb Time International Ratio 1.1 (0.8-1.1) 1.2 (0.8-1.1) Laboratory Tests Test 02/10/21 08:25 Prothrombin Time 15.2 SEC (11.7-14.0) Prothromb Time International Ratio 1.2 (0.8-1.1) Imaging Postop x-rays show good sizing and placement total knee arthroplasty Assessment Assessment POD#1 left total knee arthroplasty Plan Plan of Care Continue warfarin anticoagulation mobilize with physical therapy Likely outpatient physical therapy on discharge Justicifation of Admission Dx: Justifications for Admission: Justification of Admission Dx: N/A GORDON ALVAREZ MD Feb 10, 2021 20:35
[2021-02-10] MEDS ORDERED: OXYC5CAP PO (20:38)
[2021-02-10] MEDS ORDERED: TRAM50TA PO (20:38)
--- NOTE | 2021-02-10 20:40 | DISCH ---
DISCHARGE INSTRUCTIONS Condition on Discharge Condition on Discharge: Stable Activity After Discharge Activity Instructions for Disc: Activity as tolerated Weight Bearing Status after Di: As tolerated Diet after Discharge Diet after Discharge: Regular Wound Incision Care Wound/Incision Care: Ice to area for comfort, Do not change dressing (Maintain daniel dressing, call if saturated, otherwise remove suction machine when it stops in 1 week cut tail of dressing and tape over to maintain seal) Community/Resources/Services Services at Discharge: PT EVALUATE & TREAT Contacting the DRDavid after DC Call your doctor for: Concerns you may have Follow-Up Follow up with: Dr. Sinha or Wendy 2 weeks postop GORDON SINHA MD Feb 10, 2021 20:40
[2021-02-11] MEDS: oxyCODONE IR 5 MG TABLET PO PRN ×5 (02:40→17:36)
[2021-02-11] MEDS: ACETAMINOPHEN 500 MG TABLET PO SCH ×3 (02:40→17:33)
[2021-02-11 05:00] VITALS: BP 114/51
[2021-02-11] MEDS: LOSARTAN POTASSIUM 50 MG TABLET. PO SCH (09:00)
[2021-02-11] MEDS: FERROUS SULFATE 325 MG TABLET. PO SCH ×2 (09:01→17:00)
[2021-02-11] MEDS: SENNOSIDES/DOCUSATE 8.6/50MG TABLET. PO SCH (09:01)
[2021-02-11] MEDS: FLUoxetine HCL 20 MG CAPSULE PO SCH (09:01)
[2021-02-11] MEDS: MULTIVITAMIN with MINERAL TABLET. PO SCH (09:01)
[2021-02-11 09:36] LABS: HEMATOCRIT 33.1 % (36.0-47.0); HEMOGLOBIN 10.9 g/dL (12.0-15.5)
[2021-02-11 09:52] LABS: PROTHROMBIN TIME PATIENT 18.3 SEC (11.7-14.0)
[2021-02-11] MEDS ORDERED: WARF4TAB64 PO (13:22)
[2021-02-11] MEDS ORDERED: WARFARIN 4 MG TABLET. PO ONE (16:00)
--- NOTE | 2021-02-11 16:31 | PATHOLOGY ---
[facility] Accession Number: [id number] . 01 Material submitted: . knee - LEFT KNEE BONE AND TISSUE. Modifiers: left . 01 Clinical history: . POST TRAUMATIC WITH OSTEOARTHRITIS OF LEFT KNEE L KNEE TOTAL ARTHROPLASTY REMOVAL ACL FIXATION HARDWARE . 02 Diagnosis: Segments of bone and focal attached soft tissue, left total knee arthroplasty: - Advanced degenerative arthritis. (JPM:pit; 02/11/2021) QTP 02/11/2021 1539 Local . 02 Electronically signed: . Tavo Patel MD, Pathologist NPI- [id number] . 01 Gross description: . The specimen is received in formalin, labeled "Breanna Redd, left knee bone and tissue". Received are multiple segments of yellow-matthew to red-brown bone, including the tibial plateau, measuring 9.5 x 8.7 x 2.0 cm in aggregate dimensions. The articular surfaces are smooth to granular in appearance with evidence of eburnation. Soft tissue and meniscus is not grossly identified. The specimen is submitted representatively in cassette A1, following decalcification. (CAA; 02/10/2021) QAC/QAC 02/10/2021 0847 Local . 02 Pathologist provided ICD-10: M17.12 . 02 CPT . 894114, [id number] Specimen Comment: A courtesy copy of this report has been sent to [phone], [phone] Specimen Comment: [id number] Specimen Comment: Report sent to / DR MARTINES Specimen Comment: A duplicate report has been generated due to demographic updates. Performed at: [address], [place], [place] [id number] MD Ralf Lovell MD Phone: [phone] Performed at: 02 [facility] [address] [place], [place] [id number] MD Tavo Patel MD Phone: [phone]
[2021-02-11 17:26] VITALS: BP 124/66
--- NOTE | 2021-02-11 18:00 | NUR ---
BA IS READY TO GO HOME . reviewed discharge instructions with ba. reviewed restrictions to activities of daily living such as bathing driving, reviewed new medications and incisional care. follow up with Dr. Sinha and PT(outpatient) . script sent to her pharmacy. Coumadin given. medicated with oxycodone prior to dismissal. questions answered. saline lock dc'd
== END 2021-02-11 18:30 | disposition home or self-care (01) ==
LOC: SURG 09:25 → 4 SOUTHEST 13:55
PROVIDERS: ADMIT Orthopaedic Surgery; ATTEND Orthopaedic Surgery
DX: M17.32 Unilateral post-traumatic osteoarthritis, left knee (principal); I10 Essential (primary) hypertension; F41.9 Anxiety disorder, unspecified; F32.9 Major depressive disorder, single episode, unspecified; Z96.652 Presence of left artificial knee joint; Z79.899 Other long term (current) drug therapy; Z98.890 Other specified postprocedural states; Z79.01 Long term (current) use of anticoagulants
CPT/HCPCS: 27447; 36415; 73560; 85014; 85018; 85610; 86850; 86900; 86901; 88304; 88311; 96361; 96365; 96375; 96376; 97116; 97150; 97162; 97166; 97530; 97535; A4213; A4930; A6223; A6253; A6258; A6402; A6450; A6550; C1713; C1755; C1776; G0378; G0379; J0171; J0690; J1100; J1885; J2270; J2405; J2704; J2795; J3010; J3370; J3490; J7030

== ENCOUNTER → 2021-02-15 | Outpatient (CLI) | payer OTHER, MEDICARE ==
[2021-02-11 09:00] VITALS: BP 114/51
[~2021-02-15] MED LIST changes: -ACETAMINOPHEN 500 MG TABLET PO PRN; -GABAPENTIN 300 MG CAPSULE. PO PRN; -HYDROmorphone 2 MG/ML VIAL IVP PRN; -IV RINGERS,LACTATED 1000ML 1,000 ML IV SCH; -MELOXICAM 7.5 MG TABLET PO PRN; -MORPHINE SULFATE 2 MG/ML INJ. IVP PRN; -MORPHINE SULFATE 5 MG, KETOROLAC 30MG VIAL 30 MG, ROPIVacaine 0.5% PF 60 ML, EPINEPHrin... INT ART ONE; +OXYC5CAP PO; -PROCHLORPERAZINE 10 MG/2 ML VIAL. IVP PRN; +TRAM50TA PO; -TRANEXAMIC ACID 1,000 MG in IV NS 50ML -- 1ST BAG INJ ONE; -TRANEXAMIC ACID 1,000 MG in IV NS 50ML -- 2ND BAG INJ ONE; +WARF4TAB64 PO; -fentaNYL PF VIAL 100 MCG/2 ML VIAL IVP PRN
[2021-02-15 11:33] LABS: PROTHROMBIN TIME PATIENT 23.7 SEC (11.7-14.0)
== END ==
LOC: LAB 10:36
PROVIDERS: ATTEND Orthopaedic Surgery
DX: Z79.01 Long term (current) use of anticoagulants (principal)
CPT/HCPCS: 36415; 85610

== ENCOUNTER → 2021-02-15 | Outpatient (CLI) | payer OTHER, MEDICARE ==
[2021-02-11 09:00] VITALS: BP 114/51
--- NOTE | 2021-02-15 11:45 | RAD ---
Left lower extremity venous duplex study Clinical History: Lower extremity pain and edema Technique: Using a combination of real time ultrasound imaging and color-flow and pulse Doppler imagi ng techniques, including spectral analysis, graded compression and augmentation, duplex evaluation of the deep venous system of the left lower extremity was performed. Multiple images were obtained. Findings: There is no sonographic evidence of deep venous thrombosis involving the visualized deep ve nous structures of the left lower extremity Impression: No evidence of deep venous thrombosis involving the left lower extremity Electronically signed by: Vasyl Us MD (02/15/2021 11:43 AM) [id number]
== END ==
LOC: US 10:31
PROVIDERS: ATTEND Physician Assistant
DX: M79.89 Other specified soft tissue disorders (principal); M79.605 Pain in left leg
CPT/HCPCS: 93971